=== PATIENT | female | born 1955 | race Caucasian/White ===

== ENCOUNTER 2020-01-22 10:55 | Outpatient (CLI) | payer MEDICARE, SELFPAY ==
--- NOTE | 2020-01-22 11:04 | ECG_ITS ---
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 Interpretive Statements NAME OF STUDY: EXERCISE SESTAMIBI STRESS TEST INDICATION: Chest Pain Baseline blood pressure of 186/87 mm Hg, heart rate of 64 beats per minute and oxygen saturation of 97%. EKG showed normal sinus rhythm, rightward axis with normal ST-Ts. The patient exercised for 3 minutes 42 seconds on a standard Kalpesh protocol. Patient attained a maximum heart rate of 128 beats per minute( 126 % of the maximum predicted heart rate) with a blood pressure at the peak exercise of 198/96 mm Hg. The EKG at the peak exercise revealed sinus tachycardia with no significant ST-T wave changes. Patient did not have any chest pain or any significant arrhythmis with the exercise. During the recovery phase, there were no new changes. Blood pressure at the end of the recovery phase was 145/93 mm Hg with a heart rate of 80 beats per minute. CONCLUSION: 1. Normal EKG response to treadmill exercise. 2. No exercise-induced chest pain or cardiac arrhythmia. 3. Decreased exercise tolerance, attained a maximum of 4.6 METs. Maximum VO2 of 16.1 ml/kg/min. 4. Baseline hypertension with normal response to exercise.Exaggerated heart rate response to exercise. 5. Perfusion scan will be documented separately. Electronically Signed On 01-23-2020 20:45:07 CDT by Michelle Fuller M.D. [email or web address]
--- NOTE | 2020-01-22 11:05 | NMCV_ITS ---
NM stephanie perf SPECT r/s* [id number] Letitia Church Age: 64 Gender: F : 1955 Exam Date: 01/22/2020 11:05 Ordering Phys: Zoraida Garsia MD Technologist: HILL Cotto Exam Location: [facility] Indications: Chest pain STRESS TEST Please see separate stress test report in [facility] for full findings IMAGE PROTOCOL Rest/Stress 1 Exercise Day Radiopharmaceutical Dose (mCi) Administration Site Administered by Rest: Tc-99m 10.7 IV HILL Cotto Sestamibi Stress:Tc-99m 32.4 IV HILL Cotto Sestamibi Rest: 22-Jan-2020 60 Discovery 630 Stress: 22-Jan-2020 30 Discovery 630 Radiopharmaceutical was injected at 88 % maximum heart rate. Images obtained in supine and prone position. SPECT RESULTS Technical Quality: Excellent Raw Data Analysis: Normal Image Corrections: No attenuation or motion correction applied Summed Stress Score: 0 Summed Rest Score: 0 Summed Difference Score: 0 PERFUSION FINDINGS SPECT images demonstrate homogeneous tracer distribution throughout the myocardium. FUNCTIONAL RESULTS (calculated via Gated SPECT) Stress Image LV EF (%): 84 Stress EDV (mL):56 TID: 0.72 Stress ESV (mL):9 FUNCTIONAL FINDINGS: The left ventricle is normal in size. Transient Ischemia Dilatation of 0.72. There is hyperdynamic left ventricular systolic function. The left ventricular ejection fraction is hyperdynamic with a value of 84%. There is hyperdynamic left ventricular wall thickening. Normal end-diastolic and end-systolic volumes. IMPRESSIONS 1. Myocardial perfusion imaging is normal. 2. Overall left ventricular systolic function is normal without regional wall motion abnormalities. 3. The left ventricular ejection fraction is hyperdynamic with a value of 84%. 4. This study suggests a low likelihood of angiographically significant coronary artery disease. Michelle Fuller MD (Electronically Signed) Final Date: 24 January 2020 13:34 S
[2020-01-22 11:15] VITALS: BMI 24.9
[2020-01-22 13:28] VITALS: BP 145/93; PULSE 80
== END 2020-01-22 10:56 | disposition home or self-care (01) ==
LOC: CDL 10:58
PROVIDERS: PCP Family Medicine; Visit Provider Family Medicine
DX: R07.9 Chest pain, unspecified (principal)
CPT/HCPCS: 78452; 93017; A9500

== ENCOUNTER → 2020-03-10 13:57 | Outpatient (BNVA) | payer MEDICARE, SELFPAY | PROVIDERS: PCP Family Medicine; Visit Provider Internal Medicine Rheumatology | DX: R76.8 Other specified abnormal immunological findings in serum (principal); Z79.899 Other long term (current) drug therapy; M79.10 Myalgia, unspecified site; E03.9 Hypothyroidism, unspecified; R05 Cough | CPT/HCPCS: 36415; 71046; 80076; 81001; 82306; 82565; 82570; 84156; 85025; 99203 ==

== ENCOUNTER 2020-03-10 15:06 | Outpatient (CLI) | payer MEDICARE, SELFPAY ==
--- NOTE | 2020-03-10 15:11 | XRR_ITS ---
PROCEDURE INFORMATION: Exam: XR Chest, 2 Views Exam date and time: 03/10/2020 3:13 PM Age: 65 years old Clinical indication: Abnormal findings; Abnormal diagnostic tests; Other: Serum; Patient HX: C/O weakness, abnormal labs; Additional info: R76.8 - other specified abnormal immunological findings in serum TECHNIQUE: Imaging protocol: XR of the chest Views: 2 views. COMPARISON: No relevant prior studies available. FINDINGS: Lungs: Unremarkable. No consolidation. Pleural space: Unremarkable. No pleural effusion. No pneumothorax. Heart/Mediastinum: Unremarkable. No cardiomegaly. Bones/joints: Unremarkable. XR/XR chest 2V* [id number] IMPRESSION: No acute cardiopulmonary disease demonstrated.
[2020-03-10 15:44] LABS: Basophils # 0.1 10^3/uL (0.0-0.1); Basophils % 0.6 %; Eosinophils # 0.4 10^3/uL (0.0-0.8); Eosinophils % 4.3 %; Hematocrit 43.2 % (37.0-47.0); Hemoglobin 14.2 g/dL (11.5-15.3); Lymphocytes # 2.4 10^3/uL (0.8-4.8); Lymphocytes % 28.6 %; Mean Corpuscular HGB Conc 32.9 g/dL (30.0-36.0); Mean Corpuscular Hemoglobin 32.1 pg (28.0-34.0); Mean Corpuscular Volume 97.5 fL (81-99); Mean Platelet Volume 9.2 fL (7.4-10.4); Monocytes # 0.7 10^3/uL (0.2-0.9); Monocytes % 8.5 %; Neutrophils # 4.76 10^3/uL (1.8-7.7); Neutrophils % 57.9 %; Nucleated Red Blood Cells % 0 %; Platelet Count 238 10^3/cmm (130-400); Red Blood Count 4.43 10^6/uL (4.1-5.3); Red Cell Distribution Width 12.5 % (12.1-15.1); White Blood Count 8.2 10^3/uL (4.0-10.0)
[2020-03-10 16:05] LABS: Bilirubin Urine Neg (Negative); Blood Urine Neg (Negative); Glucose Urine UA Norm (Normal); Ketones Urine Negative (Negative); Leukocyte Esterase Urine Negative (Negative); Nitrate Urine Negative (Negative); Protein Urine Neg (Negative); Specific Gravity, Urine 1.005 (1.005-1.030); Urine Appearance Clear (CLEAR); Urine Color Straw (Yellow); Urobilinogen Urine Norm (Negative)
[2020-03-10 16:19] LABS: Alanine Aminotransferase 25 U/L (0-33); Albumin Level 4.8 g/dL (3.5-5.2); Alkaline Phosphatase 78 IU/L (35-105); Aspartate Amino Transferase 17 U/L (0-32); Globulin 2.3 g/dL (1.3-4.6); Glomerular Filtration Rate 71.8 mL/min (90-130); Total Bilirubin 0.3 mg/dL (0.15-1.2); Total Protein 7.1 g/dL (6.6-8.7)
[2020-03-10 16:24] LABS: Urine Creatinine 23 mg/dL (28-217); Urine Protein Random 4 mg/dL
[2020-03-10 17:23] LABS: Squamous Epithelial Cell Urine 0-4 /hpf (0-5)
[2020-03-10 17:24] LABS: Add Urine Culture? No; Bacteria Urine TRACE /hpf
[2020-03-10 19:43] LABS: 25 Hydroxy Vitamin D 32 ng/mL (30-100)
[2020-03-11 11:43] LABS: COMPLEMENT COMPONENT C3C 120 mg/dL (83-193); COMPLEMENT COMPONENT C4C 28 mg/dL (15-57)
[2020-03-11 13:14] LABS: COMPLEMENT, TOTAL (CH50) 48 U/mL (31-60)
[2020-03-11 16:13] LABS: THYROID PEROXIDASE ANTIBODIES <1 IU/mL (<9)
[2020-03-12 13:52] LABS: CENTROMERE B ANTIBODY <1.0 NEG AI (<1.0 NEG); JO-1 ANTIBODY <1.0 NEG AI (<1.0 NEG); RNP ANTIBODY <1.0 NEG AI (<1.0 NEG); SCL-70 ANTIBODY <1.0 NEG AI (<1.0 NEG); SJOGREN'S ANTIBODY (SS-A) >8.0 POS AI (<1.0 NEG); SM ANTIBODY <1.0 NEG AI (<1.0 NEG); SS-B <1.0 NEG AI (<1.0 NEG)
[2020-03-13 14:42] LABS: ANA PATTERN Nuclear, Nucleolar; ANA SCREEN, IFA POSITIVE (NEGATIVE); Anti-Nuclear AB Pattern #2 Nuclear, Homogeneous; Anti-Nuclear Antibody Titer #2 1:40 titer
[2020-03-13 22:12] LABS: DNA AB (DS) CRITHIDIA,IFA NEGATIVE (NEGATIVE)
== END 2020-03-10 15:07 | disposition home or self-care (01) ==
LOC: LAB 15:10
PROVIDERS: PCP Family Medicine; Visit Provider Internal Medicine Rheumatology
DX: R76.8 Other specified abnormal immunological findings in serum (principal); Z79.899 Other long term (current) drug therapy
CPT/HCPCS: 36415; 71046; 80076; 81001; 82306; 82565; 82570; 84156; 85025

== ENCOUNTER 2020-08-25 07:54 | Outpatient (CLI) | payer MEDICARE, SELFPAY ==
--- NOTE | 2020-08-25 08:24 | XR_ITS ---
WS: [id number] CERVICAL SPINE 3 VIEWS HISTORY: TORTICOLLIS COMPARISON: None available. Very slight increase in the upper thoracic lordosis and LEFT curvature of the cervical spine. C4 ante rolisthesis by 2.4 mm. There is diffuse osteopenia. Mild disc space narrowing. No fractures. Facet howie int arthritis and narrowing at C2-3, C3-4 and C4-5 is most significant. Lateral masses of C1 and C2 a re aligned. The odontoid is poorly visualized but intact. Soft tissues are normal. XR/XR cervical spine 3V* [id number] IMPRESSION: 1. C4 anterolisthesis by 2.4 mm. 2. No fracture. 3. Advanced facet joint arthritis and narrowing at C2-3 through C4-5. 4. Mild LEFT curvature cervical spine.
== END 2020-08-25 07:55 | disposition home or self-care (01) ==
PROVIDERS: PCP Family Medicine; Visit Provider Family Medicine
DX: M43.6 Torticollis (principal); M47.812 Spondylosis without myelopathy or radiculopathy, cervical region; M43.8X2 Other specified deforming dorsopathies, cervical region
CPT/HCPCS: 72040

== ENCOUNTER 2020-09-18 11:00 | Outpatient (CLI) | payer MEDICARE, SELFPAY ==
--- NOTE | 2020-09-18 11:05 | MM_ITS ---
WS: [id number] BILATERAL SCREENING DIGITAL MAMMOGRAM WITH CAD HISTORY: SCREENING COMPARISON: 07/16/2010 Bilateral CC and MLO views submitted. Computer aided detection analyzed. Breast composition: The breasts are heterogeneously dense, which may obscure small masses. No suspici ous masses, microcalcifications or architectural distortion. Benign scattered calcifications. MM/[place] [id number] IMPRESSION: BI-RADS: 2-Benign FOLLOW UP: 1 Year Follow-up
== END 2020-09-18 11:01 | disposition home or self-care (01) ==
LOC: RADSHAW 11:01
PROVIDERS: PCP Family Medicine; Visit Provider Family Medicine
DX: Z12.31 Encounter for screening mammogram for malignant neoplasm of breast (principal)
CPT/HCPCS: 77067

== ENCOUNTER → 2020-10-15 13:39 | Outpatient (BNVA) | payer MEDICARE, SELFPAY | PROVIDERS: PCP Family Medicine; Visit Provider Surgery | DX: Z12.11 Encounter for screening for malignant neoplasm of colon (principal) | CPT/HCPCS: 87635 ==

== ENCOUNTER 2020-10-21 07:48 | Day surgery (SDC) | payer MEDICARE, SELFPAY ==
[2020-10-19 12:32] VITALS: BMI 24.9
[2020-10-21 08:25] VITALS: BP 110/64; PULSE 68; RESP 18; TEMP 36.5; O2SAT 100
[2020-10-21] MEDS: sodium chloride 0.9% 1,000 ML 30 ML IV (09:04)
--- NOTE | 2020-10-21 09:05 | ANES.PREANE2 ---
Pre-Anesthetic Assessment Pre-Anesthetic Assessment: Height/Weight: Height 1.63 m Weight 65.771 kg Temp Pulse Resp BP Pulse Ox 97.7 F 68 18 110/64 100 10/21/20 08:25 10/21/20 08:25 10/21/20 08:25 10/21/20 08:25 10/21/20 08:25 Proposed Procedure: Operation Date: 10/21/20 09:30 Proposed Procedures p Colonoscopy 00046 Z12.11(Not Applicable) - Salomon Lucas MD Was Beta Akanksha taken within 24 hours: N/A Was Clonidine taken within 24 hours: N/A Last intake: Intake Last Liquid Date 10/21/20 Last Liquid Time 02:00 Last Solid Date 10/20/20 Social: Social History: No alcohol and No tobacco Exam: Pre-Anes Outpt Exam: alert, oriented x 3, clear to auscultation bilaterally and regular rate & rhythm Airway: Submandibular: WNL Cervical ROM: WNL MP: 2 Metabolic: Metabolic: Hyperlipidemia and Thyroid Musc/skel: Comments: myalgia Anesthetic Plan: ASA status: 2 Anesthesia: MAC Risk of > 500 ml blood loss (7ml/kg in children): No Meds/Allergies Current Medications: Current Medications Generic Name Dose Route Start Last Admin Trade Name Freq PRN Reason Stop Dose Admin Sodium Chloride 1,000 mls @ 30 ml s/hr 10/21/20 08:30 10/21/20 09:04 Sodium Chloride 0.9% IV 10/22/20 08:29 30 mls/hr .Q24H PATRIZIA Administration PFSH Anesthesia PFSH: Medical History (Updated 03/10/20 @ 15:09 by Mohamud Torres MD) Hyperlipidemia Hypothyroid Myalgia Myalgia Persistent dry cough Positive NURYS (antinuclear antibody) Surgical History (Updated 03/10/20 @ 15:08 by Mohamud Torres MD) History of oophorectomy History of tonsillectomy Family History (Updated 03/10/20 @ 14:17 by Kary Gillespie LPN) Other CAD (coronary artery disease) Cancer Diabetes Hyperlipidemia Rheumatoid arthritis Denies family history of Lupus Psoriatic arthritis Chronic kidney disease (CKD) Lung disease Hypertension Stroke Social History (Updated 03/10/20 @ 14:18 by Kary Gillespie LPN) Smoking and tobacco status: never smoked Alcohol intake: never History of recent travel: No Data Anesthesia Cardiac Studies: No Data to Display
--- NOTE | 2020-10-21 09:31 | W.PM.OPSFHP ---
Same Day Surgery H&P Indication for Procedure/HPI DATE OF PROCEDURE: October 21, 2020 CHIEF COMPLAINT/INDICATIONFOR SURGICAL PROCEDURE: Screening colonoscopy PREOP DIAGNOSIS: Screening colonoscopy PLANNED PROCEDRUE: Operation Date: 10/21/20 09:30 Proposed Procedures p Colonoscopy 95502 Z12.11(Not Applicable) - Salomon Lucas MD This is a pleasant 65 years old female patient presents to my practice with history of family history of colon cancer, of her grandfather. Patient had a colonoscopy about 6 years ago and was told that she had diverticulosis at that time she had blood in stool. ROS All systems have been reviewed negative except as per the above or per problem list. Medications/Allergies* Home Medications Medication Instructions Recorded Confirmed Type atorvastatin 10 mg tablet 10 mg PO DAILY 03/02/20 10/19/20 History levothyroxine 88 mcg tablet 88 mcg PO DAILY 03/02/20 10/19/20 History aspirin 81 mg tablet,delayed 81 mg PO .QOD tab 03/10/20 10/19/20 History release omega-3 fatty acids 1,000 mg 1,000 mg PO DAILY 03/10/20 10/19/20 History capsule multivitamin 1 tab PO DAILY 08/14/20 10/19/20 History Allergies/Adverse Reactions Allergy/AdvReac Type Severity Reaction Status Date / Time Penicillins Allergy Mild Unknown Verified 10/21/20 09:37 Current Medications: Generic Name Dose Route Start Last Admin Trade Name Freq PRN Reason Stop Dose Admin Sodium Chloride 1,000 mls @ 30 mls/hr 10/21/20 08:30 10/21/20 09:04 Sodium Chloride 0.9% IV 10/22/20 08:29 30 mls/hr .Q24H PATRIZIA Administration Pertinent History/Comorbid Conditions* Medical History (Updated 03/10/20 @ 15:09 by Mohamud Torres MD) Hyperlipidemia Hypothyroid Myalgia Myalgia Persistent dry cough Positive NURYS (antinuclear antibody) Surgical History (Updated 03/10/20 @ 15:08 by Mohamud Torres MD) History of oophorectomy History of tonsillectomy Family History (Updated 03/10/20 @ 14:17 by Kary Gillespie LPN) Rheumatoid arthritis Diabetes CAD (coronary artery disease) Hyperlipidemia Cancer Denies family history of Lupus Psoriatic arthritis Chronic kidney disease (CKD) Lung disease Hypertension Stroke Social History Smoking and tobacco status: never smoked Alcohol intake: never History of recent travel: No Pertinent Exam Findings alert, oriented x 3, clear to auscultation bilaterally, regular rate & rhythm and procedure specific exam findings (Abdominal examination nontender nondistended soft) Recommendations Surgery/Procedure today (Colonoscopy with possible biopsy possible polypectomy) Other Plans: Plan of care; After thorough history and physical examination and reviewing the chart, plan to perform screening colonoscopy. I discussed with the patient in details the risks,benefits,alternatives and indications.The risk of aspiration, bleeding, soft tissue injury, perforation of the colon and other potential concomitant complications were explained to the patient in details,also the potential need for Laproscoy/Laparotomy to repair any related complications including but not limited to colectomy and or Closotomy.The patient understood this well and did agree to proceed. Rationale was carefully and clearly discussed with the patient.Appropriate informed consent have been reviewed and signed All questions have been answered and all concerns have been addressed to patient's satisfaction. 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
[2020-10-21 10:04] VITALS: BP 98/50; PULSE 60; RESP 16; TEMP 36.7; O2SAT 95
[2020-10-21 10:19] VITALS: BP 98/59; PULSE 58; RESP 16; O2SAT 95
--- NOTE | 2020-10-21 17:08 | ANE.PACU2 ---
Inpatient post-anesthesia follow up: Airway intact: Yes Vital signs: Temperature 98.1 F Pulse Rate 58 Respiratory Rate 16 Blood Pressure 98/59 Pulse Oximetry 95 Oxygen Delivery Me thod Room Air Oxygen Flow Rate Fraction of Inspir ed Oxygen Hydration adequate: Yes Nausea and vomiting: No Pain level: 1 Mental status: Baseline
== END 2020-10-21 10:35 | disposition home or self-care (01) ==
PROVIDERS: PCP Family Medicine; Visit Provider Surgery
PROC: 0DJD8ZZ Inspection of Lower Intestinal Tract, Via Natural or Artificial Opening Endoscopic (ICD-10-PCS; CPT 45378; principal; 2020-10-21 09:30)
DX: Z12.11 Encounter for screening for malignant neoplasm of colon (principal); D12.3 Benign neoplasm of transverse colon; K57.30 Diverticulosis of large intestine without perforation or abscess without bleeding; E78.5 Hyperlipidemia, unspecified; E03.9 Hypothyroidism, unspecified; M79.10 Myalgia, unspecified site; Z79.82 Long term (current) use of aspirin; Z82.49 Family history of ischemic heart disease and other diseases of the circulatory system; Z83.3 Family history of diabetes mellitus
CPT/HCPCS: 45380; 88305; 96360; J2704; J7030

== ENCOUNTER → 2021-04-12 11:25 | Outpatient (BNVA) | payer MEDICARE, SELFPAY | PROVIDERS: PCP Family Medicine; Visit Provider Internal Medicine Rheumatology | DX: R76.8 Other specified abnormal immunological findings in serum (principal); R05.3 Chronic cough; Z79.899 Other long term (current) drug therapy | CPT/HCPCS: 99213 ==

== ENCOUNTER 2021-04-12 12:51 | Outpatient (CLI) | payer MEDICARE, SELFPAY ==
[2021-04-12 13:23] LABS: Basophils % 0.7 %; Eosinophils # 0.2 10^3/uL (0.0-0.8); Eosinophils % 3.9 %; Hematocrit 41.7 % (37.0-47.0); Mean Corpuscular HGB Conc 33.6 g/dL (30.0-36.0); Mean Corpuscular Hemoglobin 32.1 pg (28.0-34.0); Mean Corpuscular Volume 95.6 fl (81-99); Mean Platelet Volume 9.3 fL (7.4-10.4); Monocytes # 0.5 10^3/uL (0.2-0.9); Neutrophils # 3.24 10^3/uL (1.8-7.7); Neutrophils % 54.2 %; Nucleated Red Blood Cells % 0 %; Platelet Count 217 10^3/cmm (130-400); Red Blood Count 4.36 10^6/uL (4.1-5.3); Red Cell Distribution Width 12.2 % (12.1-15.1)
[2021-04-12 13:40] LABS: Alanine Aminotransferase 29 U/L (0-33); Albumin Level 4.4 g/dL (3.5-5.2); Alkaline Phosphatase 69 IU/L (35-105); Aspartate Amino Transferase 21 U/L (0-32); C Reactive Protein 0.6 mg/L (0.0-4.9); Globulin 2.3 g/dL (1.3-4.6); Glomerular Filtration Rate 83.5 mL/min (90-130); Total Bilirubin 0.4 mg/dL (0.15-1.2); Total Protein 6.7 g/dL (6.6-8.7)
[2021-04-12 13:55] LABS: 25 Hydroxy Vitamin D 25 ng/mL (30-100)
== END 2021-04-12 12:52 | disposition home or self-care (01) ==
LOC: LAB 12:55
PROVIDERS: PCP Family Medicine; Visit Provider Internal Medicine Rheumatology
DX: M79.10 Myalgia, unspecified site (principal); R76.8 Other specified abnormal immunological findings in serum; Z79.899 Other long term (current) drug therapy
CPT/HCPCS: 80076; 82306; 82565; 85025; 86140

== ENCOUNTER 2021-07-09 11:52 | Emergency (ER) | payer MEDICARE, SELFPAY ==
[2021-07-09 12:02] VITALS: BP 200/88; PULSE 68; RESP 14; TEMP 36.9; O2SAT 98; BMI 25.7
[2021-07-09 12:20] VITALS: BP 160/107; PULSE 61; RESP 12; O2SAT 98
--- NOTE | 2021-07-09 12:23 | ED_ITS ---
HPI - Dizziness General: Chief Complaint: Dizziness Stated Complaint: Chest Pains Time Seen by Provider: 07/09/21 12:23 History of Present Illness: HPI Narrative: Ms. Church is a 66-year-old lady with history of thyroid disorder who presents to the emergency department with 2 separate concerns. She reports over the past number of weeks she has had intermittent episodes of unsteady feeling on her feet. There is no dizziness or presyncopal feeling associated with this. Generally they are sudden onset and resolve when she sits down. They are not associated with quick position changes or any torque pleural component with any other activity that she can think of. These have been severe enough that she has near falls. It is inconsistent whether it was to the right of the left. Denies any other focal neurologic deficits associated with these. Course has persisted and when present intensity is moderate to severe. Additionally she reports a longstanding history of palpitations which have perhaps become more frequent. She previously had cardiac stress testing greater than 1 year ago which was negative. She reports intermittent episodes where she feels short thumps and discomfort in her chest associated with these. No associated other typical cardiac features. No other specific changes in health, exacerbating, or alleviating factors iden tified. No environmental changes or medication changes. No changes in caffeine intake. Perhaps mild stress. Additionally the patient does endorse possible Covid though was not tested approximately 4 weeks ago though has felt that symptoms resolved. Onset (ago): week(s) Timing: episodic Severity: moderate Description: off-balance and difficulty walking Review of Systems General: Reports: 10 or more systems reviewed and unremarkable except in HPI and below PFSH ED PFSH: Medical History Colon polyp Diverticulosis Hyperlipidemia Hypothyroid Myalgia Myalgia Palpitations Persistent dry cough Positive NURYS (antinuclear antibody) SS-A antibody positive Surgical History History of oophorectomy History of tonsillectomy Family History Other CAD (coronary artery disease) Cancer Diabetes Hyperlipidemia Rheumatoid arthritis Denies family history of Lupus Psoriatic arthritis Chronic kidney disease (CKD) Lung disease Hypertension Stroke Social History Smoking and tobacco status: never smoked Alcohol intake: never History of recent travel: No Physical Exam Const: COMMON NORMALS: patient oriented x3 and alert GENERAL APPEARANCE: cooperative and well developed HENMT: COMMON NORMALS: normocephalic and atraumatic HEAD & SCALP: normocephalic and atraumatic THROAT: posterior oropharynx normal Eye: COMMON NORMALS: conjunctivae normal CONJUNCTIVA: Yes conjunctivae normal SCLERA: sclerae normal Neck/C-Spine: COMMON NORMALS: supple GENERAL: Yes trachea midline Resp: COMMON NORMALS: normal respiratory effort EFFORT & INSPECTION: Yes able to speak in complete sentences Cardio: COMMON NORMALS: regular rate and regular rhythm RATE: regular rate RHYTHM: regular rhythm GI: COMMON NORMALS: Soft to palpation PALPATION: Yes Soft to palpation and No Tenderness to palpation present (GI) PERCUSSION: normal to percussion Extremity: GENERAL: Yes normal exam except as noted and No edema Neuro: COMMON NORMALS: patient oriented x3, CN's II-XII intact bilaterally, moves all extremities, no focal motor deficits, no sensory deficits noted and gait normal SENSORIUM/ORIENTATION: Yes alert and No Orientation impaired Psych: COMMON NORMALS: mental status grossly normal and Normal thought process present THOUGHT PROCESS: Normal thought process present Course ED course: - Patient was seen and evaluated by me at bedside - Patient placed on cardiac monitors, IV access obtained - Initial evaluation notable for exam as above, no focal neurologic deficits appreciated. - Labs and xrays personally interpreted by me. EKG from 04/14/2002, 1315, and 04/11/2004 reviewed by me. Sinus rhythm present with nonspecific ST segment abnormalities. No STEMI. - IV fluids given - Labs notable for no acute hematologic abnormality. Metabolic panel with perhaps mild evidence of dehydration. Urinalysis not concerning for urinary tract infection. - Imaging notable for no lobar consolidation or pneumothorax. CT head negative for acute intracranial hemorrhage or mass - Upon serial reexamination after treatment the patient was mildly improved - Based on patient history, evaluation, and testing as interpreted the most like ly cause of the patient's condition is unspecified unsteadiness and high blood pressure. We will plan for outpatient follow-up, initiation of amlodipine and carotid ultrasound studies. Additionally I will order Holter monitor. Given absence of neurologic findings in the emergency department and clinical history I do not feel that additional ED imaging is needed though she may need outpatient additional imaging. - The results of ED evaluation were discussed with the patient including prescriptions and/or symptomatic cares (if applicable) including appropriate and responsible use, followup plan, and return precautions. The patient verbalized understanding and felt safe for discharge. - Patient discharged in satisfactory condition. Note: Click bubbles or prepopulated palma in note writing are used for assistance with data collection and billing and are inherently more limited than narrative and other text portions of this note. Please use narrative for additional clinical history and defer to narrative/free test for any case of contradictory information. If information appears in only free text or click bubble it should be considered present or absent as reported. Please contact note communications writer for clarifications of clinical information or contradictory information. MDM is a brief summary, contradictory or erroneous seeming information should be clarified and full note should be reviewed. Vital Signs: Vital signs: Vital Signs Temperature 98.4 F 07/09/21 12:02 Pulse Rate 61 07/09/21 16:27 Respiratory Rate 15 07/09/21 16:27 Blood Pressure 167/80 07/09/21 16:27 Pulse Oximetry 94 07/09/21 16:27 MDM - Dizziness Medical Decision Making 66-year-old lady presenting with weeks history of unsteady feeling intermittently as well as longstanding history of palpitations which are int ermittent and not correlated however becoming more frequent. No neurologic deficits appreciated on clinical exam. No obvious cause of patient's symptoms. Satisfactory for outpatient management and further evaluation. I will order carotid ultrasounds and Holter monitor. Patient initiated on amlodipine for hypertension. Medical Records I reviewed the patient's medical records. Lab Data I reviewed the patient's lab results. : 07/09/21 12:20 07/09/21 12:20 Radiology Impressions Chest X-Ray 07/09/21 12:43 IMPRESSION: 1. No acute cardiopulmonary finding. Head CT 07/09/21 12:43 IMPRESSION: Negative head CT. Laboratory Results WBC 7.2 10^3/uL (4.0-10.0) 07/09/21 12:20 RBC 4.63 10^6/uL (4.1-5.3) 07/09/21 12:20 Hgb 14.8 g/dL (11.5-15.3) 07/09/21 12:20 Hct 44.1 % (37.0-47.0) 07/09/21 12:20 MCV 95.2 fl (81-99) 07/09/21 12:20 MCH 32.0 pg (28.0-34.0) 07/09/21 12:20 MCHC 33.6 g/dL (30.0-36.0) 07/09/21 12:20 RDW 12.2 % (12.1-15.1) 07/09/21 12:20 Plt Count 230 10^3/cmm (130-400) 07/09/21 12:20 MPV 9.5 fL (7.4-10.4) 07/09/21 12:20 Neut % (Auto) 59.7 % 07/09/21 12:20 Lymph % (Auto) 28.5 % 07/09/21 12:20 [place] % (Auto) 8.4 % 07/09/21 12:20 Eos % (Auto) 2.5 % 07/09/21 12:20 Baso % (Auto) 0.6 % 07/09/21 12:20 Neut # (Auto) 4.33 10^3/uL (1.8-7.7) 07/09/21 12:20 Lymph # (Auto) 2.1 10^3/uL (0.8-4.8) 07/09/21 12:20 [place] # (Auto) 0.6 10^3/uL (0.2-0.9) 07/09/21 12:20 Eos # (Auto) 0.2 10^3/uL (0.0-0.8) 07/09/21 12:20 Baso # (Auto) 0.0 10^3/uL (0.0-0.1) 07/09/21 12:20 Nucleated RBC % (auto) 0 % 07/09/21 12:20 Nucleated RBCs # 0.0 /100WBC 07/09/21 12:20 Sodium 136 mmol/L (136-145) 07/09/21 12:20 Potassium 3.7 mmol/L (3.5-5.1) 07/09/21 12:20 Chloride 96 mmol/L (98-107) L 07/09/21 12:20 Carbon Dioxide 28 mmol/L (22-29) 07/09/21 12:20 Anion Gap 15.7 (5-19) 07/09/21 12:20 BUN 11 mg/dL (8-23) 07/09/21 12:20 Creatinine 0.7 mg/dL (0.5-0.9) 07/09/21 12:20 GFR Calculation 83.5 mL/min (90-130) L 07/09/21 12:20 Glucose 105 mg/dL (65-115) 07/09/21 12:20 Calculated Osmolality 282 mOsm/kg (285-295) L 07/09/21 12:20 Calcium 10.8 mg/dL (8.5-10.5) H 07/09/21 12:20 Magnesium 1.9 mg/dL (1.7-2.3) 07/09/21 12:20 Total Bilirubin 0.6 mg/dL (0.15-1.2) 07/09/21 12:20 AST 18 U/L (0-32) 07/09/21 12:20 ALT 20 U/L (0-33) 07/09/21 12:20 Alkaline Phosphatase 68 IU/L (35-105) 07/09/21 12:20 Troponin T Baseline 8 ng/L (0-10) 07/09/21 12:20 Troponin T 120 Minute 9.40 ng/L (0-10) 07/09/21 14:32 Delta Troponin T 1.40 ABS# (0-10) 07/09/21 14:32 NT-Pro-B Natriuret Pep 28 pg/mL (0-125) 07/09/21 12:20 Total Protein 7.0 g/dL (6.6-8.7) 07/09/21 12:20 Albumin 5.1 g/dL (3.5-5.2) 07/09/21 12:20 Globulin 1.9 g/dL (1.3-4.6) 07/09/21 12:20 TSH 0.62 uIU/mL (0.27-4.20) 07/09/21 12:20 Urine Color Yellow (Yellow) 07/09/21 13:25 Urine Appearance Clear (CLEAR) 07/09/21 13:25 Urine pH 7 (5-7) 07/09/21 13:25 Ur Specific [place] 1.010 (1.005-1.030) 07/09/21 13:25 Urine Protein Neg (Negative) 07/09/21 13:25 Urine Glucose (UA) Norm (Normal) 07/09/21 13:25 Urine Ketones Negative (Negative) 07/09/21 13:25 Urine Blood Neg (Negative) 07/09/21 13:25 Urine Nitrate Negative (Negative) 07/09/21 13:25 Urine Bilirubin Neg (Negative) 07/09/21 13:25 Urine Urobilinogen Neg mg/dL (Negative) 07/09/21 13:25 Ur Leukocyte Esterase Negative (Negative) 07/09/21 13:25 Discharge Plan Discharge Patient Disposition: Home Clinical Impression: Unsteady, Palpitations, Hypertension Condition: Stable Prescriptions: New amlodipine 5 mg tablet 5 mg PO DAILY Qty: 30 0RF No Action omega-3 fatty acids [Fish Oil Concentrate] 1,000 mg capsule 2,000 mg PO BID 0RF multivitamin Tablet 1 tab PO QAM 0RF atorvastatin 10 mg tablet 10 mg PO BEDTIME 0RF levothyroxine [Euthyrox] 88 mcg tablet 88 mcg PO QAM 0RF aspirin 81 mg tablet,delayed release (DR/EC) 81 mg PO EVERY OTHER DAY 0RF Vitamin D3 1 cap PO DAILY 0RF Discharge Orders: Discharge ED (Routine); Ordered 07/09/21 Ordered By: Azam Burns Other Ambulatory Orders: ECG holter monitor 7 Days (Routine) Timeframe: 3 Days Facility: [facility] - Location: Radiology Ordered By: Azam Burns Referrals: Zoraida Garsai MD [Primary Care Provider] - Discharge Diet: Usual diet Discharge Activity: Resume usual activity Patient Instructions: Heart Palpitations (ED), Dizziness (ED) Activity Restrictions/Additional Instructions: Thank you for visiting the emergency department. You were seen and evaluated for unsteady gait as well as high blood pressure and palpitations. The exact cause of your symptoms is unclear as discussed. No significant abnormality was identified on labs or imaging today. I will start you on amlodipine for blood pressure control, blood pressure is best managed by your primary care provider, please follow-up with your primary care provider. Additionally I will order an outpatient Holter monitor and ultrasound of your carotid arteries. Please return to the emergency department for any new neurologic symptoms, chest pain, shortness of breath, neurologic deficit, or anything else that you are concerned about and feel needs emergency department evaluation. Coding Level of Care Code ED Medicaid Plan Compliance Director for Chg Fwd Exam Comprehensive
--- NOTE | 2021-07-09 12:43 | CT_ITS ---
WS: [id number] CT HEAD NONCONTRAST HISTORY: unsteady gait, episodic TECHNIQUE: Contiguous axial imaging performed through the brain in 2.5 mm imaging. Bone and soft tiss ue windows. Sagittal and coronal reformats reviewed. All CT scans at [facility] [place] use at least one of these dose optimization techniques: automated exposure control; mA and/or kV adjustment per pa tient size (includes targeted exams where dose is matched to clinical indication); or iterative recon struction. DLP: 756.55 mGy.cm COMPARISON: None available. No acute intracranial hemorrhage, midline shift or mass effect. No atrophy or prior infarcts or herniation. Ventricles: Normal size with no hydrocephalus. Paranasal sinuses: As visualized are clear. Mastoid air cells: Well pneumatized. Calvarium and scalp: Skull is intact with no soft tissue edema or swelling. CT/CT head wo con* [id number] IMPRESSION: Negative head CT.
--- NOTE | 2021-07-09 12:43 | XR_ITS ---
WS: [id number] Exam: XR chest 1V portable [id number] Date/Time of Exam: 07/09/2021 12:53 PM Reason For Exam: palpitations Comparison 03/10/2020. The lungs are fully expanded and clear. Normal cardiomediastinal silhouette. Bony structures are inta ct. Monitoring leads superimpose the chest. XR/XR chest 1V portable [id number] IMPRESSION: 1. No acute cardiopulmonary finding.
--- NOTE | 2021-07-09 12:43 | ECG_ITS ---
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 Measurements Intervals [place] Rate: 67 P: 68 OK: 149 QRS: 90 QRSD: 105 T: 79 QT: 404 QTc: 427 Interpretive Statements SINUS RHYTHM MINIMAL ST DEPRESSION [0.025+ mV ST DEPRESSION] No previous ECG available for comparison Electronically Signed On 07-09-2021 13:40:42 CDT by Philly Barlow M.D. [email or web address] Wirelessking's daughters medical centerZenputcleveland clinic mercy hospital.[employer]/store/NU/[id number]/[id number] f
[2021-07-09 12:50] LABS: Basophils % 0.6 %; Eosinophils # 0.2 10^3/uL (0.0-0.8); Eosinophils % 2.5 %; Hematocrit 44.1 % (37.0-47.0); Hemoglobin 14.8 g/dL (11.5-15.3); Lymphocytes # 2.1 10^3/uL (0.8-4.8); Lymphocytes % 28.5 %; Mean Corpuscular HGB Conc 33.6 g/dL (30.0-36.0); Mean Corpuscular Volume 95.2 fl (81-99); Mean Platelet Volume 9.5 fL (7.4-10.4); Monocytes # 0.6 10^3/uL (0.2-0.9); Monocytes % 8.4 %; Neutrophils # 4.33 10^3/uL (1.8-7.7); Neutrophils % 59.7 %; Nucleated Red Blood Cells % 0 %; Platelet Count 230 10^3/cmm (130-400); Red Blood Count 4.63 10^6/uL (4.1-5.3); Red Cell Distribution Width 12.2 % (12.1-15.1); White Blood Count 7.2 10^3/uL (4.0-10.0)
--- NOTE | 2021-07-09 13:08 | PC.NURSE ---
Pt is in CT at this time
[2021-07-09 13:12] LABS: Troponin(5th) Baseline 8 ng/L (0-10)
[2021-07-09 13:21] LABS: Alanine Aminotransferase 20 U/L (0-33); Albumin Level 5.1 g/dL (3.5-5.2); Alkaline Phosphatase 68 IU/L (35-105); Anion Gap 15.7 (5-19); Aspartate Amino Transferase 18 U/L (0-32); Blood Urea Nitrogen 11 mg/dL (8-23); Calcium 10.8 mg/dL (8.5-10.5); Carbon Dioxide 28 mmol/L (22-29); Chloride 96 mmol/L (98-107); Creatinine Clr Calc Pharmacy 64.6738; Globulin 1.9 g/dL (1.3-4.6); Glomerular Filtration Rate 83.5 mL/min (90-130); Glucose 105 mg/dL (65-115); Magnesium 1.9 mg/dL (1.7-2.3); NT Pro B Type Natriuretic Pept 28 pg/mL (0-125); Osmolality Calculated 282 mOsm/kg (285-295); Potassium 3.7 mmol/L (3.5-5.1); Sodium 136 mmol/L (136-145); Thyroid Stimulating Hormone 0.62 uIU/mL (0.27-4.20); Total Bilirubin 0.6 mg/dL (0.15-1.2)
[2021-07-09 13:33] VITALS: BP 190/87; PULSE 64; RESP 12; O2SAT 97
[2021-07-09 13:37] LABS: Add Urine Microscopic? NO; Charge for UA Resulting for Rev
[2021-07-09 13:47] LABS: Bilirubin Urine Neg (Negative); Blood Urine Neg (Negative); Glucose Urine UA Norm (Normal); Ketones Urine Negative (Negative); Leukocyte Esterase Urine Negative (Negative); Nitrate Urine Negative (Negative); Protein Urine Neg (Negative); Urine Appearance Clear (CLEAR); Urine Color Yellow (Yellow); Urobilinogen Urine Neg (Negative); pH Urine 7 (5-7)
[2021-07-09 13:54] VITALS: BP 154/82; BP 175/78; BP 176/87
[2021-07-09] MEDS: sodium chloride 0.9% 1,000 ML 999 ML IV (13:56)
--- NOTE | 2021-07-09 14:43 | ECG_ITS ---
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 Measurements Intervals [place] Rate: 60 P: 63 [place]: 160 QRS: 89 QRSD: 92 T: 83 QT: 402 QTc: 405 Interpretive Statements SINUS RHYTHM Compared to ECG 07/09/2021 12:05:25 ST (T wave) deviation no longer present Electronically Signed On 07-09-2021 13:59:33 CDT by Philly Barlow M.D. [email or web address] [email or web address] [email or web address]/store/[id number] f
[2021-07-09 16:27] VITALS: BP 167/80; PULSE 61; RESP 15; O2SAT 94
--- NOTE | 2021-07-09 18:43 | ECG_ITS ---
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 Measurements Intervals [place] Rate: 55 P: 66 MD: 166 QRS: 85 QRSD: 93 T: 77 QT: 406 QTc: 391 Interpretive Statements SINUS BRADYCARDIA Compared to ECG 07/09/2021 13:15:48 Sinus rhythm no longer present Electronically Signed On 07-10-2021 11:36:12 CDT by Manny Sales M.D. [email or web address].Passmanencompass health rehabilitation hospitalSound2Light Productionsuniversity hospitals [facility].[employer]/store/OM/[id number]
--- NOTE | 2021-07-12 10:39 | DCPLANNER ---
Addendum entered by Trish Corcoran 09/03/21 17:20: Patient had a follow up appointment scheduled for 09.02.21 with [facility] - patient did attend appointment. Patient had a follow up appointment scheduled for 07.19.21 with [facility] care for a holter monitor - patient did attend appointment. Addendum entered by Trish Corcoran 07/13/21 14:27: Patient has a follow up appointment scheduled for August at 10:[address] Fuller at [facility]. online advertising manager called patient and gave patient the appointment information. Patient has a follow up appointment scheduled for Monday, July 19, 2021 at 11:30 for a halter monitor. Clinic called patient with appointment information. Original Note: online advertising manager had message to schedule a follow up appointment for patient with [facility]. online advertising manager sent patients information to the front staff at [facility] the [employer] system. Patients information will be printed and reviewed. Clinic will notify case monitor of the appointment information. online advertising manager will call patient with appointment information. online advertising manager also had message to schedule an outpatient ultrasound and a holter monitor for patient. online advertising manager will fax signed order to centralized scheduling and heart care for the outpatient tests. Centralized scheduling and heart care will call patient with appointment information.
== END 2021-07-09 16:36 | disposition home or self-care (01) ==
PROVIDERS: Emergency Provider Emergency Medicine; PCP Family Medicine
DX: R00.2 Palpitations (principal); R26.81 Unsteadiness on feet; I10 Essential (primary) hypertension
CPT/HCPCS: 70450; 71045; 80053; 81003; 83735; 83880; 84443; 84484; 85025; 93005; 96360; 99284; J7030

== ENCOUNTER → 2021-07-19 11:14 | Outpatient (BNVA) | payer MEDICARE, SELFPAY | PROVIDERS: PCP Family Medicine; Visit Provider Internal Medicine Cardiovascular Disease | DX: R00.2 Palpitations (principal); I47.1 Supraventricular tachycardia; R00.1 Bradycardia, unspecified | CPT/HCPCS: 93246 ==

== ENCOUNTER → 2021-09-02 09:47 | Outpatient (BNVA) | payer MEDICARE, SELFPAY | PROVIDERS: PCP Family Medicine; Visit Provider Internal Medicine Cardiovascular Disease | DX: R07.9 Chest pain, unspecified (principal); R00.2 Palpitations; I47.1 Supraventricular tachycardia; E78.5 Hyperlipidemia, unspecified; D68.51 Activated protein C resistance; M35.00 Sjogren syndrome, unspecified; I10 Essential (primary) hypertension | CPT/HCPCS: 99203; 99204 ==

== ENCOUNTER 2021-10-04 11:24 | Outpatient (CLI) | payer MEDICARE, SELFPAY ==
--- NOTE | 2021-10-04 11:43 | MM_ITS ---
WS: [id number] BILATERAL SCREENING DIGITAL BREAST TOMOSYNTHESIS MAMMOGRAM WITH CAD HISTORY: SCREENING COMPARISON: 09/18/2020 and 07/16/2010 Bilateral CC and MLO views with tomosynthesis and synthetic mammography submitted. Computer aided det ection analyzed. Breast composition: There are scattered areas of fibroglandular density. No suspicious masses, microc alcifications or architectural distortion. Benign calcifications in each breast. MM/[place] [id number] IMPRESSION: BI-RADS: 2-Benign FOLLOW UP: 1 Year Follow-up
== END 2021-10-04 11:25 | disposition home or self-care (01) ==
LOC: RAD 11:25
PROVIDERS: PCP Family Medicine; Visit Provider Family Medicine
DX: Z12.31 Encounter for screening mammogram for malignant neoplasm of breast (principal)
CPT/HCPCS: 77063; 77067

== ENCOUNTER 2021-10-05 15:01 | Outpatient (CLI) | payer MEDICARE, SELFPAY ==
--- NOTE | 2021-10-05 15:08 | USCV_ITS ---
Ranjit Letitia Age: 66 Gender: F : 1955 Exam Date: 10/05/2021 15:12 Ordering Phys: Zoraida Garsia MD Technologist: Exam Location: [facility] [place] Indication: dizzy Risk Factors: Previous Vascular Surgery: Right Brachial BP: / Left Brachial BP: / Right Left Velocity (cm/s) Spectral Plaque Velocity (cm/s) Spectral Plaque Syst/Diast Broadening Syst/Diast Broadening 79.20/ 16.95 Prox CCA 56.50 / 11.80 64.20/ 12.80 Mid CCA 62.40 / 13.10 61.80/ 11.70 Distal CCA 57.30 / 18.80 72.00/ 17.45 Prox ICA 64.40 / 17.10 87.85/ 27.70 Mid ICA 73.60 / 15.80 104.75/34.20 Distal ICA 72.30 / 18.40 97.35 ECA 88.90 1.51 ICA/CCA 1.18 Antegrade Vertebral Antegrade 34.70/ 9.10 cm/s 34.20/ 9.90 cm/s Tri Subclavian Tri 74.20 74.90 FINDINGS Minimal plaques at the bifurcations and proximal carotid arteries bilaterally. Intimal thickening in the common carotid arteries bilaterally Antegrade flow in the vertebral arteries bilaterally Normal Doppler flow velocities in the external carotid, subclavian and vertebral arteries bilaterally CONCLUSIONS Minimal plaques at the bifurcations and proximal internal carotid arteries bilaterally. No significant stenosis in the external carotid, subclavian and vertebral arteries bilaterally, based on the above findings Dr Philly Barlow MD [facility] (Electronically Signed) Final Date: 06 October 2021 20:23 S
== END 2021-10-05 15:02 | disposition home or self-care (01) ==
PROVIDERS: PCP Family Medicine; Visit Provider Emergency Medicine
DX: I65.23 Occlusion and stenosis of bilateral carotid arteries (principal); I10 Essential (primary) hypertension; Z86.59 Personal history of other mental and behavioral disorders
CPT/HCPCS: 93880

== ENCOUNTER → 2021-12-09 10:45 | Outpatient (BNVA) | payer MEDICARE, SELFPAY | PROVIDERS: PCP Family Medicine; Visit Provider Internal Medicine Cardiovascular Disease | DX: R07.9 Chest pain, unspecified (principal); R00.2 Palpitations; I47.1 Supraventricular tachycardia; E78.5 Hyperlipidemia, unspecified; D68.51 Activated protein C resistance; E03.9 Hypothyroidism, unspecified; M35.00 Sjogren syndrome, unspecified | CPT/HCPCS: 99214 ==

== ENCOUNTER 2022-04-05 13:48 | Outpatient (CLI) | payer MEDICARE, SELFPAY ==
--- NOTE | 2022-04-05 13:58 | XR_ITS ---
WS: [id number] SCREENING DEXA SCAN [employer] CLINICAL INFORMATION: ASYMPTOMATIC MENOPAUSAL STATE COMPARISON: None. FINDINGS: The L1-L4 bone mineral density measures 1.005 g/cm2. This corresponds to a T score score of -1.5 and Z score of 0.1. Left femoral neck bone mineral density measures 0.818 g/cm2. This corresponds to a T score of -1.5 an d Z score of -0.2. Right femoral neck bone mineral density measures 0.809 g/cm2. This corresponds to a T score -1.6of an d Z score of -0.3. Mean femoral neck bone mineral density measures 0.813 g/cm2. This corresponds to a T score of -1.5 an d Z score of -0.2. XR/XR DEXA axial skeleton* [id number] IMPRESSION: Osteopenia lumbar spine. Osteopenia femoral necks. Patient's FRAX calculated 10 year probability for major osteoporotic fracture i s 12.5 % and osteoporotic hip fracture is 2.5%.
== END 2022-04-05 13:49 | disposition home or self-care (01) ==
LOC: RAD 13:49
PROVIDERS: PCP Family Medicine; Visit Provider Family Medicine
DX: Z78.0 Asymptomatic menopausal state (principal)
CPT/HCPCS: 77080

== ENCOUNTER → 2022-06-30 13:00 | Outpatient (BNVA) | payer MEDICARE, SELFPAY | PROVIDERS: PCP Family Medicine; Visit Provider Nurse Practitioner Family | DX: R00.2 Palpitations (principal); Z79.82 Long term (current) use of aspirin | CPT/HCPCS: 99213 ==

== ENCOUNTER → 2022-10-13 13:38 | Outpatient (BNVA) | payer MEDICARE, SELFPAY | PROVIDERS: PCP Family Medicine; Visit Provider Internal Medicine Cardiovascular Disease | DX: R03.0 Elevated blood-pressure reading, without diagnosis of hypertension (principal); R00.2 Palpitations; I47.1 Supraventricular tachycardia | CPT/HCPCS: 99214 ==

== ENCOUNTER 2022-10-18 01:52 | Emergency (ER) | payer MEDICARE, SELFPAY ==
[2022-10-18 02:02] VITALS: BMI 25.2
[2022-10-18 02:06] VITALS: BP 185/81; PULSE 67; RESP 16; TEMP 37.1; O2SAT 100
--- NOTE | 2022-10-18 02:17 | ED_ITS ---
HPI - General Adult General: Chief complaint: General Medical Stated complaint: B/P issues Time Seen by Provider: 10/18/22 01:53 Source: patient and family Mode of arrival: ambulatory Limitations: no limitations History of Present Illness: Patient presents to the emergency department this morning for concerns of elevated blood pressure readings. Patient was seen and evaluated by cardiology 5 days ago where they did address concerns for elevated blood pressure readings. Patient has been keeping a blood pressure log and, after speaking with cardiology was decided to start back on amlodipine 2.5 mg daily. It was indicated that if patient's systolic was less than 120 she could hold amlodipine and take as needed. Patient had also been evaluated for palpitations for which she had worn a Holter monitor a few months ago. Cardiology note indicates patient was showing signs of occasional, brief runs of SVT and rare occurrences of other arrhythmia. The cardiology note also indicates evaluation of her carotids in 2021 and reported a negative exercise stress test. Patient states she has been taking her amlodipine daily since her cardiology appointment. She also has continued keeping a blood pressure log. She states she takes her blood pressure multiple times throughout the day even though I know I am not supposed to . But she reports feeling like her blood pressure was going up this evening. Patient states she gets a tingling sensation on the top of her head but denies headache. She has not had visual changes, chest pain, or shortness of breath. Her blood pressure log indicates she took a half amlodipine with systolic around 160. She checked her blood pressure again another hour or so later and systolic had gone up some. She states she took another half tablet. Patient has a systolic reading at approximately 1230 this morning of 200 and notes taking another full tablet of amlodipine. Patient has had 2 full tablets of her amlodipine over the last 12 hours. Patient states she is currently asymptomatic of chest pain or shortness of breath but feels shaky and was concerned. Review of Systems General: Reports: 10 or more systems reviewed and unremarkable except in HPI and below PFSH ED PFSH: Medical History Colon polyp Diverticulosis Factor 5 Leiden mutation, heterozygous Hyperlipidemia Hypothyroid Myalgia Myalgia Palpitations Persistent dry cough Positive NURYS (antinuclear antibody) Sjogren syndrome, unspecified SS-A antibody positive Surgical History History of elbow surgery History of oophorectomy History of tonsillectomy Family History Father Myocardial infarction Other CAD (coronary artery disease) Cancer Diabetes Hyperlipidemia Hypertension Rheumatoid arthritis Social History Smoking and tobacco status: never smoked Alcohol intake: never Physical Exam Const: COMMON NORMALS: no acute distress, average body habitus, patient oriented x3, no limitations, healthy appearing and alert HENMT: COMMON NORMALS: normocephalic, atraumatic, hearing grossly normal bilaterally, external ears normal, Normal external nose present and moist oral mucous membranes HEAD & SCALP: normocephalic and atraumatic NOSE: Normal external nose present EXTERNAL EAR: Yes external ears normal Eye: COMMON NORMALS: Equal, round and reactive pupils present, EOMs intact bilaterally and conjunctivae normal CONJUNCTIVA: Yes conjunctivae normal PUPIL: Yes Equal, round and reactive pupils present Neck/C-Spine: COMMON NORMALS: full ROM Cardio: COMMON NORMALS: regular rate and regular rhythm (EKG tracing confirmed) RATE: regular rate RHYTHM: regular rhythm (EKG tracing confirmed) Back/Pelvis: COMMON NORMALS: thoraco-lumbar ROM normal Extremity: COMMON NORMALS: full ROM OTHER: Patient is independently ambulatory and weightbearing here in the emergency department. Neuro: COMMON NORMALS: patient oriented x3 SENSORIUM/ORIENTATION: Yes alert Course Vital Signs: Vital signs: Vital Signs Temperature 98.8 F 10/18/22 02:06 Pulse Rate 67 10/18/22 02:06 Respiratory Rate 16 10/18/22 02:06 Blood Pressure 185/81 10/18/22 02:06 Pulse Oximetry 100 10/18/22 02:06 Oxygen Delivery Me thod Room Air 10/18/22 02:06 [facility] - General Adult Medical Decision Making Patient reports asymptomatic hypertension/elevated blood pressure readings this evening. Patient has her blood pressure log book with her and patient has checked her blood pressure approximately 20 times in the last 12 hours. She does have systolic readings ranging from the 130s to 200 recorded in this log. While here in the emergency department, EKG showed a sinus rhythm and though she did have an initial blood pressure reading in the 180s, was down into the 130s on reinspection. Patient's lab work revealed no acute concerns. I did discuss case with Dr. Myers who also agrees that there is no recommendation to changing the patient's medication regimen at this time. 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 I had a long discussion with the patient that blood pressure fluctuations are normal but, would recommend she seek reevaluation for elevated blood pressure readings with associated chest pains, shortness of breath, severe headache, or blurry/change in vision. Patient indicates she has never been on any other blood pressure medication other than amlodipine. Explained that her doctor may choose to try something else with better blood pressure control or, may discuss with her an acute hypertensive medication to combat episodes of elevated blood pressure readings. Either way, she needs to reach out to them and she verbalized understanding and agreement to treatment plan. Differential Diagnosis Acute hypertension, anxiety, worried well, cardiac arrhythmia Lab Data 10/18/22 02:30 10/18/22 02:30 Laboratory Results WBC 6.8 10^3/uL (4.0-10.0) 10/18/22 02:30 RBC 4.36 10^6/uL (4.1-5.3) 10/18/22 02:30 Hgb 13.9 g/dL (11.5-15.3) 10/18/22 02:30 Hct 41.2 % (37.0-47.0) 10/18/22 02:30 MCV 94.5 fl (81-99) 10/18/22 02:30 MCH 31.9 pg (28.0-34.0) 10/18/22 02:30 MCHC 33.7 g/dL (30.0-36.0) 10/18/22 02:30 RDW 12.1 % (12.1-15.1) 10/18/22 02:30 Plt Count 210 10^3/cmm (130-400) 10/18/22 02:30 MPV 8.7 fL (7.4-10.4) 10/18/22 02:30 Neut % (Auto) 54.9 % 10/18/22 02:30 Lymph % (Auto) 31.0 % 10/18/22 02:30 O'Brien % (Auto) 10.6 % 10/18/22 02:30 Eos % (Auto) 2.8 % 10/18/22 02:30 Baso % (Auto) 0.6 % 10/18/22 02:30 Neut # (Auto) 3.73 10^3/uL (1.8-7.7) 10/18/22 02:30 Lymph # (Auto) 2.1 10^3/uL (0.8-4.8) 10/18/22 02:30 O'Brien # (Auto) 0.7 10^3/uL (0.2-0.9) 10/18/22 02:30 Eos # (Auto) 0.2 10^3/uL (0.0-0.8) 10/18/22 02:30 Baso # (Auto) 0.0 10^3/uL (0.0-0.1) 10/18/22 02:30 Nucleated RBC % (auto) 0 % 10/18/22 02:30 Nucleated RBCs # 0.0 /100WBC 10/18/22 02:30 Sodium 133 mmol/L (136-145) L 10/18/22 02:30 Potassium 3.9 mmol/L (3.5-5.1) 10/18/22 02:30 Chloride 96 mmol/L (98-107) L 10/18/22 02:30 Carbon Dioxide 26 mmol/L (22-29) 10/18/22 02:30 Anion Gap 14.9 (5-19) 10/18/22 02:30 BUN 10 mg/dL (8-23) 10/18/22 02:30 Creatinine 0.7 mg/dL (0.5-0.9) 10/18/22 02:30 GFR Calculation 83.2 mL/min (90-130) L 10/18/22 02:30 Glucose 112 mg/dL (65-115) 10/18/22 02:30 Calculated Osmolality 276 mOsm/kg (285-295) L 10/18/22 02:30 Calcium 10.1 mg/dL (8.5-10.5) 10/18/22 02:30 Total Bilirubin 0.5 mg/dL (0.15-1.2) 10/18/22 02:30 AST 18 U/L (0-32) 10/18/22 02:30 ALT 23 U/L (0-33) 10/18/22 02:30 Alkaline Phosphatase 77 U/L (35-105) 10/18/22 02:30 Total Protein 7.8 g/dL (6.6-8.7) 10/18/22 02:30 Albumin 4.8 g/dL (3.5-5.2) 10/18/22 02:30 Globulin 3.0 g/dL (1.3-4.6) 10/18/22 02:30 Discharge Plan Discharge Patient Disposition: Home Clinical Impression: Elevated blood pressure reading Condition: Stable Prescriptions: No Action omega-3 fatty acids [Fish Oil Concentrate] 1,000 mg capsule 2,000 mg PO BID Hold Instructions: Patient No Longer Taking multivitamin Tablet 1 tab PO QAM atorvastatin 10 mg tablet 10 mg PO BEDTIME levothyroxine [Euthyrox] 88 mcg tablet 88 mcg PO QAM aspirin 81 mg tablet,delayed release (DR/EC) 81 mg PO EVERY OTHER DAY potassium gluconate 600 mg (99 mg) tablet 600 mg PO DAILY magnesium oxide 400 mg magnesium capsule 400 mg PO .every other day PRN amlodipine 5 mg tablet 5 mg PO DAILY PRN (Reason: HTN) Vitamin D3 1 cap PO DAILY Discharge Orders: Discharge ED (Routine); Ordered 10/18/22 Ordered By: Rebecca Bradley Referrals: Zoraida Garsia MD [Primary Care Provider] - Discharge Diet: Cardiac Discharge Activity: Increase activity as tolerated Patient Instructions: Heart Healthy Diet (ED), How to Take a Blood Pressure Reading (ED), DASH Eating Plan (ED), Hypertension (ED) Activity Restrictions/Additional Instructions: EKG showed no acute concerns and lab work was generally unremarkable. While here in the emergency department, your blood pressure readings came down into the 130s. As we discussed, there is normal variation of fluctuance and blood pressure readings however, if your blood pressure is in the 200s and you are experiencing severe headache, change in vision, chest pains, shortness of breath you need to be seen in the emergency department. After reviewing your evaluation here in the emergency department, our emergency room physician feels it is safe for you to discharge. We recommend you call your reinforced steel placing supervisor or contact their office tomorrow morning to make them aware of the return of elevated blood pressure readings. They may wish to change your dosing, try different blood pressure medication, or recommend a rescue blood pressure medicine for acutely elevated blood pressure readings. Coding Level of Care Code ED Senior Accounting Clerk for Kilo Sequeira
[2022-10-18 02:35] VITALS: BP 139/81; PULSE 80; RESP 16; O2SAT 98
[2022-10-18 02:35] LABS: Basophils % 0.6 %; Eosinophils # 0.2 10^3/uL (0.0-0.8); Eosinophils % 2.8 %; Hematocrit 41.2 % (37.0-47.0); Hemoglobin 13.9 g/dL (11.5-15.3); Lymphocytes # 2.1 10^3/uL (0.8-4.8); Mean Corpuscular HGB Conc 33.7 g/dL (30.0-36.0); Mean Corpuscular Hemoglobin 31.9 pg (28.0-34.0); Mean Corpuscular Volume 94.5 fl (81-99); Mean Platelet Volume 8.7 fL (7.4-10.4); Monocytes # 0.7 10^3/uL (0.2-0.9); Monocytes % 10.6 %; Neutrophils # 3.73 10^3/uL (1.8-7.7); Neutrophils % 54.9 %; Nucleated Red Blood Cells % 0 %; Platelet Count 210 10^3/cmm (130-400); Red Blood Count 4.36 10^6/uL (4.1-5.3); Red Cell Distribution Width 12.1 % (12.1-15.1); White Blood Count 6.8 10^3/uL (4.0-10.0)
[2022-10-18 02:55] LABS: Alanine Aminotransferase 23 U/L (0-33); Albumin Level 4.8 g/dL (3.5-5.2); Alkaline Phosphatase 77 U/L (35-105); Anion Gap 14.9 (5-19); Aspartate Amino Transferase 18 U/L (0-32); Blood Urea Nitrogen 10 mg/dL (8-23); Calcium 10.1 mg/dL (8.5-10.5); Carbon Dioxide 26 mmol/L (22-29); Chloride 96 mmol/L (98-107); Glomerular Filtration Rate 83.2 mL/min (90-130); Glucose 112 mg/dL (65-115); Osmolality Calculated 276 mOsm/kg (285-295); Potassium 3.9 mmol/L (3.5-5.1); Sodium 133 mmol/L (136-145); Total Bilirubin 0.5 mg/dL (0.15-1.2); Total Protein 7.8 g/dL (6.6-8.7)
[2022-10-18 03:24] VITALS: BP 149/80; PULSE 82; RESP 16
== END 2022-10-18 03:25 | disposition home or self-care (01) ==
PROVIDERS: Emergency Provider Physician Assistant; PCP Family Medicine
DX: R03.0 Elevated blood-pressure reading, without diagnosis of hypertension (principal); E78.5 Hyperlipidemia, unspecified; E03.9 Hypothyroidism, unspecified
CPT/HCPCS: 80053; 85025; 99283

== ENCOUNTER 2022-11-10 08:04 | Outpatient (CLI) | payer MEDICARE, SELFPAY ==
--- NOTE | 2022-11-10 08:12 | MM_ITS ---
WS: [id number] SCREENING DIGITAL TOMOSYNTHESIS MAMMOGRAM WITH CAD HISTORY: SCREENING COMPARISON: 10/04/2021 and 09/18/2020 Bilateral CC and MLO with tomosynthesis views submitted. Synthetic mammography reviewed. Computer aid ed detection analyzed. Breast composition: There are scattered areas of fibroglandular density. No suspicious masses, microc alcifications or architectural distortion. Benign scattered calcifications. MM/[place] [id number] IMPRESSION: BI-RADS: 2-Benign FOLLOW UP: 1 Year Follow-up
== END 2022-11-10 08:05 | disposition home or self-care (01) ==
PROVIDERS: PCP Family Medicine; Visit Provider Family Medicine
DX: Z12.31 Encounter for screening mammogram for malignant neoplasm of breast (principal)
CPT/HCPCS: 77063; 77067

== ENCOUNTER → 2023-01-11 13:56 | Outpatient (BNVA) | payer MEDICARE, SELFPAY | PROVIDERS: PCP Family Medicine; Visit Provider Internal Medicine Cardiovascular Disease | DX: I10 Essential (primary) hypertension (principal); R00.2 Palpitations; E78.5 Hyperlipidemia, unspecified; D68.51 Activated protein C resistance; E03.9 Hypothyroidism, unspecified; M35.00 Sjogren syndrome, unspecified; I47.10 Supraventricular tachycardia, unspecified | CPT/HCPCS: 99214 ==

== ENCOUNTER → 2023-05-26 09:49 | Outpatient (BNVA) | payer MEDICARE, SELFPAY | PROVIDERS: PCP Family Medicine; Visit Provider Nurse Practitioner Family | DX: I10 Essential (primary) hypertension (principal) | CPT/HCPCS: 99213 ==

== ENCOUNTER → 2023-08-02 12:49 | Outpatient (BNVA) | payer MEDICARE, SELFPAY | PROVIDERS: PCP Family Medicine; Visit Provider Internal Medicine Cardiovascular Disease | DX: E78.5 Hyperlipidemia, unspecified (principal); R00.2 Palpitations; D68.51 Activated protein C resistance; I10 Essential (primary) hypertension; I47.10 Supraventricular tachycardia, unspecified | CPT/HCPCS: 99213 ==

== ENCOUNTER → 2023-10-09 08:19 | Outpatient (BNVA) | payer MEDICARE, SELFPAY | PROVIDERS: PCP Family Medicine; Visit Provider Podiatrist Foot & Ankle Surgery | DX: M35.00 Sjogren syndrome, unspecified; M21.612 Bunion of left foot; M20.41 Other hammer toe(s) (acquired), right foot; M20.42 Other hammer toe(s) (acquired), left foot; M21.611 Bunion of right foot | CPT/HCPCS: 73630; 99203 ==

== ENCOUNTER → 2023-11-02 12:43 | Outpatient (BNVA) | payer MEDICARE, SELFPAY | PROVIDERS: PCP Family Medicine; Visit Provider Dermatology | DX: D48.5 Neoplasm of uncertain behavior of skin (principal); L57.0 Actinic keratosis; L94.0 Localized scleroderma [morphea]; D23.5 Other benign neoplasm of skin of trunk; L81.4 Other melanin hyperpigmentation; D22.5 Melanocytic nevi of trunk; D22.39 Melanocytic nevi of other parts of face | CPT/HCPCS: 11102; 99204 ==

== ENCOUNTER 2023-11-14 08:17 | Outpatient (CLI) | payer MEDICARE, SELFPAY ==
--- NOTE | 2023-11-14 08:21 | MM_ITS ---
WS: [email or web address] BILATERAL 3D TOMOSYNTHESIS DIGITAL SCREENING MAMMOGRAPHY WITH CAD CLINICAL INFORMATION: SCREENING HISTORY: Screening mammogram. No current complaints. COMPARISON: 2022 TECHNIQUE: Bilateral CC and MLO views. FINDINGS: Scattered fibroglandular densities bilaterally. No suspicious focal mass, asymmetry, calcifications, or architectural distortion. No evidence of malignancy. A few incidental punctate calcifications. MM/[place] [id number] IMPRESSION: BI-RADS: 2-Benign FOLLOW UP: 1 Year Follow-up Recommend return to annual screening mammography.
== END 2023-11-14 08:18 | disposition home or self-care (01) ==
LOC: RAD 08:17
PROVIDERS: PCP Family Medicine; Visit Provider Family Medicine
DX: Z12.31 Encounter for screening mammogram for malignant neoplasm of breast (principal); R92.323 Mammographic fibroglandular density, bilateral breasts
CPT/HCPCS: 77063; 77067

== ENCOUNTER → 2023-12-25 10:59 | Outpatient (BNVA) | payer MEDICARE, SELFPAY | PROVIDERS: PCP Family Medicine; Visit Provider Podiatrist Foot & Ankle Surgery | DX: M35.00 Sjogren syndrome, unspecified (principal); M79.672 Pain in left foot; M21.612 Bunion of left foot; M20.41 Other hammer toe(s) (acquired), right foot; M20.42 Other hammer toe(s) (acquired), left foot; M21.611 Bunion of right foot | CPT/HCPCS: 99213 ==

== ENCOUNTER 2024-01-17 11:30 | Outpatient (CLI) | payer MEDICARE, SELFPAY | END 2024-01-17 11:31 | disposition home or self-care (01) | LOC: SPT 11:31 | PROVIDERS: PCP Family Medicine; Visit Provider Podiatrist Foot & Ankle Surgery | DX: Z46.89 Encounter for fitting and adjustment of other specified devices (principal); M35.00 Sjogren syndrome, unspecified; M21.611 Bunion of right foot; M21.612 Bunion of left foot; M20.41 Other hammer toe(s) (acquired), right foot; M20.42 Other hammer toe(s) (acquired), left foot | CPT/HCPCS: L3030 ==

== ENCOUNTER → 2024-01-31 09:47 | Outpatient (BNVA) | payer MEDICARE, SELFPAY | PROVIDERS: PCP Family Medicine; Visit Provider Nurse Practitioner Family | DX: I10 Essential (primary) hypertension (principal); D68.51 Activated protein C resistance; E78.5 Hyperlipidemia, unspecified | CPT/HCPCS: 99214 ==

== ENCOUNTER → 2024-02-27 14:33 | Outpatient (BNVA) | payer MEDICARE, SELFPAY | PROVIDERS: PCP Family Medicine; Visit Provider Nurse Practitioner Family | DX: L57.0 Actinic keratosis (principal); L94.0 Localized scleroderma [morphea]; D23.5 Other benign neoplasm of skin of trunk; L81.4 Other melanin hyperpigmentation; D22.5 Melanocytic nevi of trunk; D22.39 Melanocytic nevi of other parts of face | CPT/HCPCS: 17000; 99213 ==

== ENCOUNTER 2024-04-05 14:41 | Outpatient (CLI) | payer MEDICARE, SELFPAY ==
--- NOTE | 2024-04-05 14:43 | XR_ITS ---
WS: [email or web address] SCREENING DEXA SCAN [employer] CLINICAL INFORMATION: POSTMENOPAUSAL COMPARISON: 2021 FINDINGS: The L1-L4 bone mineral density measures 1.014 g/cm2. This corresponds to a T score score of -1.4 and Z score of 0.1. Left femoral neck bone mineral density measures 0.825 g/cm2. This corresponds to a T score of -1.5 an d Z score of -0.1. Right femoral neck bone mineral density measures 0.814 g/cm2. This corresponds to a T score -1.5of an d Z score of -0.2. Mean femoral neck bone mineral density measures 0.819 g/cm2. This corresponds to a T score of -1.5 an d Z score of -0.1. XR/XR DEXA axial skeleton* [id number] IMPRESSION: Osteopenia lumbar spine. Osteopenia femoral necks. Patient's FRAX calculated 10 year probability for major osteoporotic fracture i s 12.3% and osteoporotic hip fracture is 2.5%. Bone mineral density lumbar spine increased 0.9% Bone mineral density femoral necks increased 0.7%
== END 2024-04-05 14:42 | disposition home or self-care (01) ==
LOC: RAD 14:42
PROVIDERS: PCP Family Medicine; Visit Provider Family Medicine
DX: L81.4 Other melanin hyperpigmentation (principal); D22.39 Melanocytic nevi of other parts of face; L57.8 Other skin changes due to chronic exposure to nonionizing radiation; L94.0 Localized scleroderma [morphea]; L57.0 Actinic keratosis
CPT/HCPCS: 17000; 77080; 99213

== ENCOUNTER → 2024-05-08 14:36 | Outpatient (BNVA) | payer MEDICARE, SELFPAY | PROVIDERS: PCP Family Medicine; Visit Provider Internal Medicine | DX: E78.5 Hyperlipidemia, unspecified (principal); R00.2 Palpitations; D68.51 Activated protein C resistance; R03.0 Elevated blood-pressure reading, without diagnosis of hypertension; I10 Essential (primary) hypertension; I47.10 Supraventricular tachycardia, unspecified | CPT/HCPCS: 99214 ==

== ENCOUNTER → 2024-09-01 10:22 | Outpatient (BNVA) | payer MEDICARE, SELFPAY | PROVIDERS: PCP Family Medicine; Visit Provider Emergency Medicine | DX: R39.9 Unspecified symptoms and signs involving the genitourinary system (principal) | CPT/HCPCS: 81000; 87086 ==

== ENCOUNTER → 2024-10-04 08:58 | Outpatient (BNVA) | payer MEDICARE, SELFPAY | PROVIDERS: PCP Family Medicine; Visit Provider Nurse Practitioner Family | DX: L81.4 Other melanin hyperpigmentation (principal); D22.39 Melanocytic nevi of other parts of face; L57.8 Other skin changes due to chronic exposure to nonionizing radiation; D22.5 Melanocytic nevi of trunk; L82.1 Other seborrheic keratosis | CPT/HCPCS: 99213 ==

== ENCOUNTER 2024-11-27 14:33 | Outpatient (CLI) | payer MEDICARE, SELFPAY ==
--- NOTE | 2024-11-27 14:40 | CT_ITS ---
WS: [id number] CT ABDOMEN AND PELVIS WITH CONTRAST HISTORY: NONINFECTIVE GASTROENTERITIS COLITIS/FEVER TECHNIQUE: Imaging performed of the abdomen and pelvis with IV contrast. Single phase imaging of the abdomen. Coronal and sagittal reformats are submitted. All CT scans at [facility] use at least one of these dose optimization techniques: automated exposure control; mA and/or kV adjustment per patient size (includes targeted exams where dose is matched to clinical indication); or iterative reconstruction. IV CONTRAST: Omnipaque 350; 100 mL IV. Oral contrast: Yes. DLP: 369.71 mGy.cm COMPARISON: None available. Lower thorax: Lung bases are clear. Heart is normal size. No hiatal hernia. Liver/biliary system: Normal size with no intrahepatic dilatation. Gallbladder: Normal. No gallstones or wall thickening. No pericholecystic fluid. Pancreas: Mild pancreatic atrophy. Spleen: Normal size spleen. No mass or infarct. Adrenal glands: Normal. Right kidney: Normal. Left kidney: Tiny cortical cyst upper pole LEFT kidney. No solid mass or obstruction. Aorta: Mild atherosclerosis with no aneurysm. Lymphadenopathy: None. Free fluid: None. GI tract: Stomach is well distended with oral contrast. Food debris within the stomach. No small bowel obstruction. Normal appendix. Diffuse moderate constipation. No obstructing lesions. Numerous diverticula in the descending and sigmoid colon without acute diverticulitis. Abdominal wall: Fat containing umbilical hernia. Pelvis: Uterus is midline with thickened endometrium to 1.3 cm. No free fluid. Negative urinary bladder. Bones: Unremarkable. CT/CT abdomen pelvis w con* [id number] IMPRESSION: 1. Moderate diffuse constipation. Numerous diverticula descending and sigmoid colon without acute diverticulitis. No colitis or wall thickening. 2. Stomach is moderately distended with oral contrast and food products. [place] nent of gastroparesis may be present due to the distention of the stomach. Ther e is no high-grade obstruction. 3. Thickened endometrium to 1.3 cm. Abnormal endometrium. Consider evaluation by SALES AND MARKETING ASSOCIATE and transvaginal pelvic ultrasound. Differential includes fluid secondar y to cervical stenosis, hyperplasia and neoplasm.
[2024-11-27] MEDS: iohexol 350 mg/mL 500 mL Btl (per mL) PO (15:36)
[2024-11-27] MEDS: iohexol 350 mg/mL 500 mL Btl (per mL) IV (16:12)
== END 2024-11-27 14:34 | disposition home or self-care (01) ==
LOC: RAD 14:34
PROVIDERS: PCP Family Medicine; Visit Provider Nurse Practitioner Family
DX: K52.9 Noninfective gastroenteritis and colitis, unspecified (principal); R21 Rash and other nonspecific skin eruption; R50.9 Fever, unspecified; K59.00 Constipation, unspecified
CPT/HCPCS: 74177

== ENCOUNTER 2024-12-06 14:44 | Outpatient (CLI) | payer MEDICARE, SELFPAY ==
--- NOTE | 2024-12-06 14:51 | US_ITS ---
WS: [email or web address] US pelv w/transvag [id number] HISTORY: INCREASED ENDOMETRIAL STRIPE THICKNESS/ABNORMAL CT COMPARISON: 01/25/2010 Uterus: 6.1 cm x 4.4 cm x 2.8 cm. Normal size anteverted uterus. No fibroid or mass. Endometrium: 1.7 cm. Marked increased thickening of the endometrium. There are a few cystic areas within the thickened endometrium. Right ovary: Prior oophorectomy. No adnexal mass. Left ovary: Not visualized. No free fluid in the cul-de-sac. US/US pelv w/transvag [id number] IMPRESSION: 1. Markedly thickened endometrium at 1.7 cm. There are a few cystic areas pres ent. Consider evaluation by STOCK UNLOADER for possible biopsy. These changes may be seen with tamoxifen therapy, hyperplasia or neoplasm. 2. Prior RIGHT oophorectomy. 3. LEFT ovary not visualized.
== END 2024-12-06 14:45 | disposition home or self-care (01) ==
LOC: RAD 14:45
PROVIDERS: PCP Family Medicine; Visit Provider Nurse Practitioner Family
DX: R93.89 Abnormal findings on diagnostic imaging of other specified body structures (principal); Z90.721 Acquired absence of ovaries, unilateral
CPT/HCPCS: 76830; 76856

== ENCOUNTER → 2025-01-02 13:47 | Outpatient (BNVA) | payer MEDICARE, SELFPAY | PROVIDERS: PCP Family Medicine; Visit Provider Internal Medicine | DX: I10 Essential (primary) hypertension (principal) | CPT/HCPCS: 99214 ==

== ENCOUNTER 2025-01-13 13:35 | Outpatient (CLI) | payer MEDICARE, SELFPAY ==
--- NOTE | 2025-01-13 13:40 | MM_ITS ---
WS: [email or web address] BILATERAL 3D TOMOSYNTHESIS DIGITAL SCREENING MAMMOGRAPHY WITH CAD CLINICAL INFORMATION: SCREENING HISTORY: Screening mammogram. No current complaints. COMPARISON: 2023 TECHNIQUE: Bilateral CC and MLO views. FINDINGS: Scattered fibroglandular densities bilaterally. No suspicious focal mass, asymmetry, calcifications, or architectural distortion. No evidence of malignancy. Vascular calcification. A few incidental punctate calcifications. MM/MM scr tomosynthesis [id number] IMPRESSION: DENSITY: There are scattered areas of fibroglandular density. BI-RADS: 2 - Benign. FOLLOW UP: 1 Year Follow-up Recommend return to annual screening mammography.
== END 2025-01-13 13:36 | disposition home or self-care (01) ==
LOC: RAD 13:35
PROVIDERS: PCP Family Medicine; Visit Provider Nurse Practitioner Family
DX: Z12.31 Encounter for screening mammogram for malignant neoplasm of breast (principal); R92.323 Mammographic fibroglandular density, bilateral breasts; R92.1 Mammographic calcification found on diagnostic imaging of breast
CPT/HCPCS: 77063; 77067

== ENCOUNTER → 2025-01-30 12:56 | Outpatient (BNVA) | payer MEDICARE, SELFPAY | PROVIDERS: PCP Family Medicine; Visit Provider Obstetrics & Gynecology | DX: R93.89 Abnormal findings on diagnostic imaging of other specified body structures (principal) | CPT/HCPCS: 88305 ==

== ENCOUNTER → 2025-02-10 11:15 | Outpatient (BNVA) | payer MEDICARE, SELFPAY | PROVIDERS: PCP Family Medicine; Visit Provider Nurse Practitioner | DX: R30.0 Dysuria (principal); N30.01 Acute cystitis with hematuria | CPT/HCPCS: 81000; 87077; 87086; 87184 ==

== ENCOUNTER 2025-03-13 09:08 | Day surgery (SDC) | payer MEDICARE, SELFPAY ==
[2025-03-13] VITALS (11 sets, daily range): BP systolic 113–157; BP diastolic 59–100; PULSE 52–70; RESP 11–20; TEMP 36.2–36.3; O2SAT 95–98; BMI 24.9
--- NOTE | 2025-03-13 11:02 | ANES.PREANE2 ---
Pre-Anesthetic Assessment Height/Weight: Height 1.63 m Weight 65.771 kg Temp Pulse Resp BP Pulse Ox O2 Del Method 97.3 F L 66 18 148/80 98 Room Air 03/13/25 09:35 03/13/25 09:35 03/13/25 09:35 03/13/25 09:35 03/13/25 09:35 03/13/25 09:35 Operation Date: 03/13/25 11:00 Proposed Procedures p Diagnostic Hysteroscopy with Dilatation and Curettage [id number] R93.89(Not Applicable) - Gordon Hernandez MD s POSSIBLE Endometrial Poylpectomy(Not Applicable) - Gordon Hernandez MD Familial anesthetic complications: None Was Beta Akanksha taken within 24 hours: N/A Was Clonidine taken within 24 hours: N/A Last intake: Intake Last Liquid Date 03/12/25 Last Liquid Time 20:00 Last Solid Date 03/12/25 Last Solid Time 18:00 Social No alcohol and No tobacco Exam alert, oriented x 3, clear to auscultation bilaterally and regular rate & rhythm Airway Mallampati: Class I CV/HEM Arrythmia and Hypertension factor V leiden (heterozygous) Metabolic Thyroid Disease [facility] [place] Anesthetic Plan ASA status: 3 Anesthesia: General Risk of > 500 ml blood loss (7ml/kg in children): No Medications/Allergies Home Medications ?Medication ?Instructions ?Recorded ?Confirmed ?Last Taken ?Type atorvastatin 10 mg tablet 10 mg PO BEDTIME 03/02/20 03/13/25 03/11/25 History levothyroxine 88 mcg tablet 88 mcg PO QAM 03/02/20 03/13/25 03/12/25 History (Euthyrox) aspirin 81 mg tablet,delayed 81 mg PO EVERY OTHER DAY 03/10/20 03/13/25 03/03/25 History release omega-3 fatty acids 1,000 mg 2,000 mg PO BID 03/10/20 03/13/25 03/12/25 History capsule (Fish Oil Concentrate) multivitamin 1 tab PO QPM 08/14/20 03/13/25 03/11/25 History Vitamin D3 1 cap PO DAILY 07/09/21 03/13/25 03/12/25 History potassium gluconate 600 mg (99 mg) 600 mg PO DAILY 12/09/21 03/13/2525 History tablet amlodipine 5 mg tablet 2.5 mg PO DAILY PRN for BP>150/90 01/11/23 03/13/25 Unknown History mm Hg Sole supports #1 ea 10/09/23 03/12/25 Unknown Rx sole supports #1 ea 12/25/23 03/12/25 Unknown Rx Alpha Lipoic Acid 200 mg PO DAILY 05/08/24 03/13/25 Unknown History Vitamin B Complex 1 tab PO DAILY 05/08/24 03/13/25 03/03/25 History valsartan 80 mg tablet 80 mg PO QPM 03/12/25 03/13/25 03/11/25 History Allergies Allergy/AdvReac Type Severity Reaction Status Date / Time Penicillins Allergy Mild Unknown Verified 03/13/25 10:01 metronidazole (From Flagyl) Allergy Rash Verified 03/13/25 10:01 Current Medications Generic Name Dose Route Start Last Admin Trade Name Freq PRN Reason Stop Dose Admin Sodium Chloride 1,000 mls @ 30 mls/hr 03/13/25 09:30 03/13/25 10:07 Sodium Chloride 0.9% IV 03/14/25 09:29 30 mls/hr .Q24H PATRIZIA Administration PFSH Anesthesia Medical History (Updated 02/24/25 @ 14:43 by Gordon Hernandez MD) HTN (hypertension) Sjogren syndrome, unspecified Factor 5 Leiden mutation, heterozygous Palpitations SS-A antibody positive Colon polyp Diverticulosis Persistent dry cough Hypothyroid Myalgia Positive NURYS (antinuclear antibody) Hyperlipidemia, unspecified hyperlipidemia type Myalgia Surgical History History of elbow surgery History of tonsillectomy History of oophorectomy Family History Father Myocardial infarction Other CAD (coronary artery disease) Cancer Diabetes Hyperlipidemia Hypertension Rheumatoid arthritis Social History Smoking and tobacco/nicotine status: never used tobacco/nicotine Alcohol intake: never Data Anesthesia Cardiac Studies: Sestamibi Stress Test (Cardiology) 01/22/20 Cardiac Event Monitor 05/08/24 Holter Monitor 07/19/21
--- NOTE | 2025-03-13 13:00 | W.PM.OPSFHP ---
Same Day Surgery H&P Indication for Procedure/HPI DATE OF PROCEDURE: March 13, 2025 CHIEF COMPLAINT/INDICATIONFOR SURGICAL PROCEDURE: Postmenopausal thickened endometrium. PREOP DIAGNOSIS: Increased endometrial stripe thickness PLANNED PROCEDURE: Operation Date: 03/13/25 11:00 Proposed Procedures p Diagnostic Hysteroscopy with Dilatation and Curettage [id number] R93.89(Not Applicable) - Gordon Hernandez MD s POSSIBLE Endometrial Poylpectomy(Not Applicable) - Gordon Hernandez MD Details: Ms. Church is a 69 year old patient who has went through menopause at age 51. Presents today for follow up. Narrative: History of Present Illness The patient is a 69-year-old female presenting with concerns regarding endometrial thickening and discussion of biopsy results. The patient's history reveals that endometrial thickening was incidentally noted during an evaluation for diarrhea, confirmed by subsequent CT and ultrasound imaging. Recent biopsy highlights keratin debris described as ectocervical, with no worrisome atypia or malignancy noted; however, this finding necessitates further exploration due to the possible implication of carcinoma and her family history of endometrial cancer. Further direct sampling and assessment via hysteroscopy are planned to ensure comprehensive examination and ruling out of malignancy. Plan: Assessment and Plan - 69-year-old female with history of atrophic endometrium presenting with evaluation for endometrial thickening. - Imaging revealed endometrial thickening, raising concerns due to biopsy findings of ectocervical keratin, although nonmalignant. Limitation of office Bx may have contributed to incomplete sampling. - Importance of ruling out malignant potential through hysteroscopy, especially considering family history of endometrial malignancy. 1. Endometrial Thickening - Pursue hysteroscopy to obtain clearer diagnostic information on the uterine condition. Medications/Allergies* Home Medications ?Medication ?Instructions ?Recorded ?Confirmed ?Type atorvastatin 10 mg tablet 10 mg PO BEDTIME 03/02/20 03/13/25 History levothyroxine 88 mcg tablet 88 mcg PO QAM 03/02/20 03/13/25 History (Euthyrox) aspirin 81 mg tablet,delayed 81 mg PO EVERY OTHER DAY 03/10/20 03/13/25 History release omega-3 fatty acids 1,000 mg 2,000 mg PO BID 03/10/20 03/13/25 History capsule (Fish Oil Concentrate) multivitamin 1 tab PO QPM 08/14/20 03/13/25 History Vitamin D3 1 cap PO DAILY 07/09/21 03/13/25 History potassium gluconate 600 mg (99 mg) 600 mg PO DAILY 12/09/21 03/13/25 History tablet amlodipine 5 mg tablet 2.5 mg PO DAILY PRN for BP>150/90 01/11/23 03/13/25 History mm Hg Alpha Lipoic Acid 200 mg PO DAILY 05/08/24 03/13/25 History Vitamin B Complex 1 tab PO DAILY 05/08/24 03/13/25 History valsartan 80 mg tablet 80 mg PO QPM 03/12/25 03/13/25 History Allergies/Adverse Reactions Allergy/AdvReac Type Severity Reaction Status Date / Time Penicillins Allergy Mild Unknown Verified 03/13/25 10:01 metronidazole (From Flagyl) Allergy Rash Verified 03/13/25 10:01 Current Medications: Generic Name Dose Route Start Last Admin Trade Name Freq PRN Reason Stop Dose Admin Sodium Chloride 1,000 mls @ 30 mls/hr 03/13/25 09:30 03/13/25 10:07 Sodium Chloride 0.9% IV 03/14/25 09:29 30 mls/hr .Q24H PATRIZIA Administration Pertinent History/Comorbid Conditions* Medical History (Updated 02/24/25 @ 14:43 by Gordon Hernandez MD) HTN (hypertension) Sjogren syndrome, unspecified Factor 5 Leiden mutation, heterozygous Palpitations SS-A antibody positive Colon polyp Diverticulosis Persistent dry cough Hypothyroid Myalgia Positive NURYS (antinuclear antibody) Hyperlipidemia, unspecified hyperlipidemia type Myalgia Surgical History (Updated 09/02/21 @ 10:37 by Michelle Fuller MD) History of elbow surgery History of tonsillectomy History of oophorectomy Family History (Updated 09/02/21 @ 10:12 by Halina Marion RN) Rheumatoid arthritis Diabetes CAD (coronary artery disease) Hyperlipidemia Myocardial infarction Father Cancer Hypertension Social History Smoking and tobacco/nicotine status: never used tobacco/nicotine Alcohol intake: never Pertinent Exam Findings alert, oriented x 3, clear to auscultation bilaterally and regular rate & rhythm Recommendations Surgery/Procedure today Coding Level of Care Code Acute Code for Chg Fwd
--- NOTE | 2025-03-13 15:30 | PM.OP2 ---
Brief Operative Note Date of procedure: 03/13/25 Pre-op diagnosis: Increased endometrial stripe thickness Post-op diagnosis: other (Large endometrial polyp) Procedure Done: Diagnostic hysteroscopy with surgical resection of large polyp and D&C Surgeon: Gordon Hernandez Estimated blood loss (mL): 5 Complications: None Post-op Plan: DH today when stable Condition: stable Disposition: same day
--- NOTE | 2025-03-13 15:31 | PM.OP ---
Operative Report Date of procedure: March 13, 2025 Surgeon: Gordon Hernandez MD Procedure: Hysteroscopy Polypectomy Report Preoperative Diagnosis: Thick endometrial stripe Postoperative Diagnosis: Endometrial polyp,large fundal Procedure: Diagnostic and operative hysteroscopy with polypectomy. Indications: Abnormal uterine stripe thickness postmenopausal. Anesthesia: Local/paracervical block and general anesthesia. Findings: Single endometrial large fundal polyp visualized in the uterine cavity, measuring approximately 2-3cm, attached to the posterior wall. Description of Procedure: After appropriate counseling , the patient was placed in lithotomy position. A speculum was inserted, and the cervix was visualized and prepped. Cervix gradually dilated until hysteroscope was introduced without resistance. The hysteroscope was introduced under direct visualization, and the uterine cavity was distended with normal saline. The 2-3 cm polyp was identified and removed using grasping forceps after several passes. Sharp curette passes also done. Hemostasis was achieved. The cavity was inspected for residual pathology; no additional lesions were noted. The procedure was well tolerated, and there were no intraoperative complications. Saline deficit <250ml. Specimens: Fragmented endometrial polyp sent for histopathological analysis, as recommended for all polypectomy specimens. Estimated Blood Loss: Minimal
[2025-03-13] MEDS: lidocaine-epi 2% PF 1:200,000 20 mL SDV XX (16:29)
--- NOTE | 2025-03-13 17:38 | ANE.PACU2 ---
Inpatient post-anesthesia follow up: Airway intact: Yes Vital signs: Temperature 97.2 F Pulse Rate 55 Respiratory Rate 18 Blood Pressure 120/59 Pulse Oximetry 98 Oxygen Delivery Me thod Room Air Oxygen Flow Rate Fraction of Inspir ed Oxygen Hydration adequate: Yes Nausea and vomiting: No Pain level: 1 Mental status: Baseline
== END 2025-03-13 18:24 | disposition home or self-care (01) ==
PROVIDERS: PCP Nurse Practitioner Family; Visit Provider Obstetrics & Gynecology
PROC: 0UB98ZZ Excision of Uterus, Via Natural or Artificial Opening Endoscopic (ICD-10-PCS; CPT 58558; principal; 2025-03-13 10:50)
DX: R93.89 Abnormal findings on diagnostic imaging of other specified body structures (principal); N84.0 Polyp of corpus uteri; I49.9 Cardiac arrhythmia, unspecified; I10 Essential (primary) hypertension; R00.2 Palpitations; E03.9 Hypothyroidism, unspecified; E78.5 Hyperlipidemia, unspecified; Z79.82 Long term (current) use of aspirin
CPT/HCPCS: 58558; 88305; A4216; J1100; J2250; J2405; J2704; J3010; J3490; J7030; J9999